=== PATIENT | female | born 1990 | race African-American/Black ===

== ENCOUNTER 2016-11-01 18:42 | Emergency (ER) | payer SELFPAY ==
[~2016-11-01] VITALS: Ht 154.9 cm; Wt 59.0 kg
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
[2016-11-01] MEDS ORDERED: ONDANSETRON PF 4 MG/2 ML VIAL. IV ONE (19:30)
[2016-11-01] MEDS ORDERED: fentaNYL PF VIAL 100 MCG/2 ML VIAL IV ONE ×3 (19:30→21:45)
[2016-11-01 19:37] LABS: BASO # 0.1 x10^3/uL (0.0-0.2); BASO % 1 % (0-3); EOS % 4 % (0-3); HEMOGLOBIN 10.9 g/dL (12.0-15.5); LYMPH # 2.7 x10^3/uL (1.0-4.8); LYMPH % 30 % (24-48); MEAN CORPUSCULAR HEMOGLOBIN 22 pg (25-35); MEAN CORPUSCULAR HGB CONC 31 g/dL (31-37); MEAN CORPUSCULAR VOLUME 71 fL (79-100); MONO % 7 % (0-9); NEUT % 59 % (31-73); PLATELET COUNT 194 x10^3/uL (140-400); RED BLOOD COUNT 4.92 x10^6/uL (3.50-5.40); RED CELL DISTRIBUTION WIDTH 19.7 % (11.5-14.5); WHITE BLOOD COUNT 9.1 x10^3/uL (4.0-11.0)
[2016-11-01 19:48] LABS: CALCIUM 9.1 mg/dL (8.5-10.1); CREATININE 1.1 mg/dL (0.6-1.0); GFR 72.6; POTASSIUM 3.6 mmol/L (3.5-5.1)
[2016-11-01 20:01] LABS: NEG OBC SER NEG; POS OBC SER POS
[2016-11-01 20:01] LABS: BARBITURATES NEG (NEG); BENZODIAZEPINES NEG (NEG); CANNABINOIDS POS (NEG); COCAINE NEG (NEG); METHADONE NEG (NEG); OPIATES NEG (NEG); PHENCYCLIDINE POS (NEG)
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
[2016-11-01 20:20] LABS: HYPOCHROMIA MOD; MICROCYTOSIS MOD; PLT ESTIMATE ADEQUATE (ADEQUATE)
[2016-11-01 22:45] VITALS: BP 118/76
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
== END 2016-11-01 22:50 | disposition short-term general hospital (02) ==
LOC: ER 18:42
DX: S02.40DA Maxillary fracture, left side, initial encounter for closed fracture (principal); S02.5XXA Fracture of tooth (traumatic), initial encounter for closed fracture; F16.10 Hallucinogen abuse, uncomplicated; F12.10 Cannabis abuse, uncomplicated; V13.4XXA Pedal cycle driver injured in collision with car, pick-up truck or van in traffic accident, initial encounter; Y93.55 Activity, bike riding; Y92.410 Unspecified street and highway as the place of occurrence of the external cause; Y99.8 Other external cause status
CPT/HCPCS: 36415; 70450; 70486; 71010; 72125; 72170; 80048; 80307; 81025; 84703; 85007; 85027; 96365; 96366; 96374; 96375; 96376; 99285; G0480; J0690; J2405; J3010; G0479

== ENCOUNTER 2017-09-28 15:45 | Inpatient (IN) | payer OTHER ==
[~2017-09-28 15:45] MED LIST: ceFAZolin 2GM PREMIX 2 GM/50 ML BAG IV
[2017-09-28] MEDS ORDERED: BUTORPHANOL 2 MG/ML VIAL. IV ×2 (16:00)
[2017-09-28] MEDS ORDERED: CITRIC ACID/SODIUM CITRATE 30 ML SOLUTION. PO (16:00)
[2017-09-28] MEDS ORDERED: 0.9 % SODIUM CHLORIDE 10 ML DISP.SYRIN. IV ×2 (16:00→17:15)
[2017-09-28] MEDS ORDERED: MAG HYDROX/ALUMINUM HYD/SIMETH 30 ML ORAL.SUSP PO ×2 (16:00→17:15)
[2017-09-28] MEDS: DINOPROSTONE 10 MG SUPP.VAG VG (16:00)
[2017-09-28] MEDS ORDERED: LIDOCAINE 1% PF 30 ML VIAL. INJ (16:00)
[2017-09-28] MEDS ORDERED: OXYTOCIN 30 UNIT/500 ML PREMIX 500 ML IV ×3 (16:00→17:15)
[2017-09-28 16:15] LABS: ADD MAN DIFF? NO
[2017-09-28 16:23] LABS: BASO % 0 % (0-3); EOS # 0.3 x10^3/uL (0.0-0.7); EOS % 3 % (0-3); HEMATOCRIT 36.9 % (36.0-47.0); HEMOGLOBIN 12.3 g/dL (12.0-15.5); LYMPH % 19 % (24-48); MEAN CORPUSCULAR HEMOGLOBIN 28 pg (25-35); MEAN CORPUSCULAR HGB CONC 33 g/dL (31-37); MEAN CORPUSCULAR VOLUME 84 fL (79-100); MONO # 0.9 x10^3/uL (0.0-1.1); MONO % 8 % (0-9); NEUT # 7.6 x10^3uL (1.8-7.7); NEUT % 70 % (31-73); PLATELET COUNT 118 x10^3/uL (140-400); RED BLOOD COUNT 4.41 x10^6/uL (3.50-5.40); RED CELL DISTRIBUTION WIDTH 17.6 % (11.5-14.5); WHITE BLOOD COUNT 10.8 x10^3/uL (4.0-11.0)
[2017-09-28] MEDS ORDERED: SUCCINYLCHOLINE 200 MG/10 ML VIAL. (16:28)
[2017-09-28 16:33] LABS: ANION GAP 11 (6-14); BLOOD UREA NITROGEN 7 mg/dL (7-20); BUN/CREATININE RATIO 12 (6-20); CALCIUM 9.2 mg/dL (8.5-10.1); CARBON DIOXIDE 22 mmol/L (21-32); CHLORIDE 104 mmol/L (98-107); CREATININE 0.6 mg/dL (0.6-1.0); GFR 145.1; GLUCOSE 123 mg/dL (70-99); POTASSIUM 3.1 mmol/L (3.5-5.1); SODIUM 137 mmol/L (136-145)
[2017-09-28 16:38] LABS: ALBUMIN 2.2 g/dL (3.4-5.0); ALBUMIN/GLOBULIN RATIO 0.6 (1.0-1.7); ALK PHOS 198 U/L (46-116); ALT (SGPT) 14 U/L (14-59); AST (SGOT) 13 U/L (15-37); TOTAL BILIRUBIN 0.1 mg/dL (0.2-1.0); TOTAL PROTEIN 6.1 g/dL (6.4-8.2)
[2017-09-28] MEDS ORDERED: miSOPROStol 200MCG TAB 200 MCG TABLET (16:38)
[2017-09-28] MEDS ORDERED: fentaNYL PF VIAL 100 MCG/2 ML VIAL ×2 (16:41→17:12)
[2017-09-28] MEDS ORDERED: DEXAMETHASONE SOD PHOS 20 MG/5 ML VIAL. (16:42)
[2017-09-28] MEDS ORDERED: OXYTOCIN 10 UNIT/ML VIAL. (16:42)
[2017-09-28] MEDS ORDERED: ONDANSETRON PF 4 MG/2 ML VIAL. (16:42)
[2017-09-28] MEDS ORDERED: PROPOFOL 20 ML IV (16:42)
[2017-09-28] MEDS ORDERED: ONDANSETRON PF 4 MG/2 ML VIAL. IV (17:15)
[2017-09-28] MEDS ORDERED: SIMETHICONE 80 MG TAB.CHEW PO (17:15)
[2017-09-28] MEDS ORDERED: oxyCODONE/APAP 5/325 1 TAB TABLET PO (17:15)
[2017-09-28] MEDS ORDERED: diphenhydrAMINE ORAL ELIXIR 12.5 MG/5 ML ML PO (17:15)
[2017-09-28] MEDS ORDERED: ZOLPIDEM 5 MG TABLET. PO (17:15)
[2017-09-28] MEDS ORDERED: MMR per PROTOCOL. MC (17:15)
[2017-09-28] MEDS: IV RINGERS,LACTATED 1000ML 1,000 ML IV ×2 (17:54→17:55)
[2017-09-28] MEDS: MORPHINE SULFATE/PF 30 ML IV ×2 (18:08→18:18)
[2017-09-28 18:45] LABS: BARBITURATES NEG (NEG); BENZODIAZEPINES NEG (NEG); CANNABINOIDS NEG (NEG); COCAINE NEG (NEG); METHADONE NEG (NEG); OPIATES NEG (NEG); PHENCYCLIDINE POS (NEG)
[2017-09-28 18:46] LABS: AMPHETAMINE/METHAMPHETAMINE NEG (NEG); ETHANOL, URINE NEG (NEG)
[2017-09-28] MEDS: KETOROLAC 30 MG/ML INJ. IV (19:30)
[2017-09-28] MEDS: TERBUTALINE 1 MG/ML VIAL. SQ (20:02)
[2017-09-28] MEDS: IBUPROFEN 800 MG TABLET. PO (22:00)
[2017-09-29] MEDS ORDERED: ceFAZolin SODIUM 1 GM in IV DEXTROSE 5% 50 ML IV
[2017-09-29] MEDS: ceFAZolin SODIUM IV Push 1 GM VIAL. IVP ×3 (00:10→16:00)
[2017-09-29] MEDS: IV RINGERS,LACTATED 1000ML 1,000 ML IV (01:29)
[2017-09-29] MEDS: MORPHINE SULFATE/PF 30 ML IV (03:27)
[2017-09-29 05:12] LABS: BASO % 0 % (0-3); EOS % 0 % (0-3); HEMATOCRIT 26.5 % (36.0-47.0); HEMOGLOBIN 8.6 g/dL (12.0-15.5); LYMPH # 1.8 x10^3/uL (1.0-4.8); LYMPH % 8 % (24-48); MEAN CORPUSCULAR HEMOGLOBIN 27 pg (25-35); MEAN CORPUSCULAR HGB CONC 32 g/dL (31-37); MEAN CORPUSCULAR VOLUME 84 fL (79-100); MONO # 1.5 x10^3/uL (0.0-1.1); MONO % 7 % (0-9); NEUT # 19.3 x10^3uL (1.8-7.7); NEUT % 85 % (31-73); PLATELET COUNT 115 x10^3/uL (140-400); RED BLOOD COUNT 3.17 x10^6/uL (3.50-5.40); RED CELL DISTRIBUTION WIDTH 17.7 % (11.5-14.5); WHITE BLOOD COUNT 22.6 x10^3/uL (4.0-11.0)
[2017-09-29 05:31] LABS: ADD MAN DIFF? YES
[2017-09-29] MEDS: IBUPROFEN 800 MG TABLET. PO ×3 (06:00→22:00)
[2017-09-29 08:07] LABS: % BANDS 8 % (0-9); % LYMPHS 5 % (24-48); % MONOS 4 % (0-10); % SEGS 83 % (35-66); PLT ESTIMATE DECREASED (ADEQUATE)
[2017-09-29 08:08] LABS: ANISOCYTOSIS SLIGHT
[2017-09-29] MEDS: DOCUSATE SODIUM 100 MG CAPSULE. PO ×2 (08:14→19:34)
[2017-09-29] MEDS: FERROUS SULFATE 325 MG TABLET. PO ×2 (08:14→16:58)
[2017-09-29] MEDS: KETOROLAC 30 MG/ML INJ. IV (08:14)
[2017-09-29] MEDS: oxyCODONE/APAP 5/325 1 TAB TABLET PO ×3 (09:06→17:53)
[2017-09-29] MEDS: diphenhydrAMINE HCL 25 MG CAPSULE PO ×2 (12:11→19:34)
[2017-09-29] MEDS: NICOTINE 14MG PATCH. TD (18:30)
[2017-09-30] MEDS: oxyCODONE/APAP 5/325 1 TAB TABLET PO ×4 (01:55→20:08)
[2017-09-30] MEDS: IBUPROFEN 800 MG TABLET. PO ×2 (06:15→14:09)
[2017-09-30] MEDS: DOCUSATE SODIUM 100 MG CAPSULE. PO ×2 (07:41→20:07)
[2017-09-30] MEDS: MAGNESIUM HYDROXIDE 2,400 MG/30 ML ORAL.SUSP. PO (07:41)
[2017-09-30] MEDS: FERROUS SULFATE 325 MG TABLET. PO ×2 (07:41→17:55)
[2017-09-30] MEDS: diphenhydrAMINE HCL 25 MG CAPSULE PO ×2 (12:11→20:11)
[2017-10-01] MEDS: oxyCODONE/APAP 5/325 1 TAB TABLET PO ×2 (00:45→07:50)
[2017-10-01] MEDS: IBUPROFEN 800 MG TABLET. PO ×2 (00:45→07:49)
[2017-10-01] MEDS: DOCUSATE SODIUM 100 MG CAPSULE. PO (07:48)
[2017-10-01] MEDS: FERROUS SULFATE 325 MG TABLET. PO (07:48)
== END 2017-10-01 10:31 | disposition home or self-care (01) | DRG 765 ==
LOC: 3 SO LND 15:45 → 3 NORTH 20:30
PROC: 10D00Z1 Extraction of Products of Conception, Low, Open Approach (ICD-10-PCS; principal; 2017-09-28)
DX: O44.13 Complete placenta previa with hemorrhage, third trimester (principal); D62 Acute posthemorrhagic anemia; Z37.0 Single live birth; Z3A.33 33 weeks gestation of pregnancy
CPT/HCPCS: 36415; 74018; 80053; 80307; 85007; 85025; 86592; 86850; 86900; 86901; 86922; G0379; J0330; J0690; J1100; J1885; J2270; J2405; J2590; J2704; J3010; J7120; Q0163

== ENCOUNTER 2018-11-22 23:06 | Emergency (ER) | payer SELFPAY ==
[~2018-11-22] VITALS: Ht 154.9 cm; Wt 59.0 kg
[~2018-11-22 23:06] MED LIST changes: +DOCU-109 PO; +FERR325T72 PO; +IBUP800T19 PO; +OXYC1TAB7 PO; -ceFAZolin 2GM PREMIX 2 GM/50 ML BAG IV
[2018-11-22 23:38] LABS: BILIRUBIN,URINE NEGATIVE (NEG); CLARITY,URINE CLOUDY; COLOR,URINE YELLOW; NITRITE,URINE NEGATIVE (NEG); PROTEIN,URINE 100 mg/dL (NEG-TRACE); UROBILINOGEN,URINE 0.2 mg/dL (0.2 mg/dL)
[2018-11-22 23:43] LABS: RBC,URINE TNTC /HPF (0-2); WBC,URINE TNTC /HPF (0-4)
[2018-11-22 23:44] LABS: BACTERIA,URINE FEW /HPF (0-FEW); SQUAMOUS EPITHELIAL CELL,UR OCC /LPF
[2018-11-22] MEDS: IV NORMAL SALINE 1000ML BAG 1,000 ML IV ONE (23:46)
[2018-11-22 23:47] LABS: BASO # 0.1 x10^3/uL (0.0-0.2); BASO % 1 % (0-3); EOS # 0.5 x10^3/uL (0.0-0.7); EOS % 4 % (0-3); HEMATOCRIT 34.5 % (36.0-47.0); HEMOGLOBIN 10.7 g/dL (12.0-15.5); LYMPH # 2.2 x10^3/uL (1.0-4.8); LYMPH % 17 % (24-48); MEAN CORPUSCULAR HEMOGLOBIN 21 pg (25-35); MEAN CORPUSCULAR HGB CONC 31 g/dL (31-37); MEAN CORPUSCULAR VOLUME 68 fL (79-100); MONO # 1.1 x10^3/uL (0.0-1.1); MONO % 9 % (0-9); NEUT # 8.8 x10^3/uL (1.8-7.7); NEUT % 69 % (31-73); PLATELET COUNT 223 x10^3/uL (140-400); RED BLOOD COUNT 5.04 x10^6/uL (3.50-5.40); WHITE BLOOD COUNT 12.7 x10^3/uL (4.0-11.0)
[2018-11-22 23:56] LABS: CALCIUM 9.3 mg/dL (8.5-10.1); CREATININE 0.8 mg/dL (0.6-1.0); GFR 103.3; POTASSIUM 3.8 mmol/L (3.5-5.1)
[2018-11-23 00:05] LABS: ALBUMIN 3.8 g/dL (3.4-5.0); ALBUMIN/GLOBULIN RATIO 0.9 (1.0-1.7); MAGNESIUM 1.6 mg/dL (1.8-2.4); TOTAL BILIRUBIN 0.2 mg/dL (0.2-1.0)
[2018-11-23] MEDS: cefTRIAXone IV Push 1 GM VIAL. IVP ONE (00:23)
[2018-11-23] MEDS: fentaNYL PF VIAL 100 MCG/2 ML VIAL IV ONE (00:35)
[2018-11-23] MEDS: KETOROLAC 15 MG/ML VIAL. IV ONE (00:35)
--- NOTE | 2018-11-23 00:40 | RAD ---
CT abdomen and pelvis without contrast: Reason for examination: Abdominal pain and hematuria. Helical images were obtained through the abdomen and pelvis with no intravenous or oral contrast administered. Reconstruction was performed in sagittal and coronal planes. Lack of oral and intravenous contrast and lack of intra-abdominal fat limit evaluation. Exposure: One or more of the following individualized dose reduction techniques were utilized for this examination: 1. Automated exposure control 2. Adjustment of the mA and/or kV according to patient size 3. Use of iterative reconstruction technique. The lung bases are clear. The heart size is normal with no pericardial effusion evident. No focal abnormality seen at the liver, spleen or adrenal glands. Gallbladder is contracted. The abdominal aorta and inferior vena cava show no gross abnormalities. The kidneys show no renal masses, renal calculi, hydronephrosis or evidence of obstructive uropathy. There is very little intra-abdominal fat present with crowding of the intestinal structures and the appendix is not identified. There is no evidence of abnormal intestinal wall thickening or bowel obstruction. No abnormality seen in the colon. The bladder is not distended. No gross abnormality seen at the uterus. No gross adnexal masses are evident. There is suggestion of a small amount of free fluid in pelvic cul-de-sac which may be physiologic. No free air seen in the abdomen. No acute bony abnormalities are seen. IMPRESSION: Limited examination due to lack of intra-abdominal fat and without oral or intravenous contrast. No evidence of renal calculus, hydronephrosis or obstructive uropathy. Contracted gallbladder however the patient does not appear to have been nothing by mouth. Small amount of fluid in pelvic cul-de-sac which may be physiologic. No other focal abnormality seen in the abdomen or pelvis. Electronically signed by: Analilia Prince MD (11/23/2018 12:37 AM) [facility]
[2018-11-23] MEDS ORDERED: PHEN-318 PO (00:45)
[2018-11-23] MEDS ORDERED: CEPH-264 PO (00:45)
--- NOTE | 2018-11-23 00:46 | PHYS DOC ---
Past Medical History Past Medical History: No Pertinent History Past Surgical History: No Surgical History Alcohol Use: None Drug Use: None Adult General Chief Complaint Chief Complaint: BLOOD IN URINE HPI HPI Patient is a 27 year old [f__sex] who presents with [] Review of Systems Review of Systems Constitutional: Denies fever or chills [] Eyes: Denies change in visual acuity, redness, or eye pain [] HENT: Denies nasal congestion or sore throat [] Respiratory: Denies cough or shortness of breath [] Cardiovascular: No additional information not addressed in HPI [] GI: Denies abdominal pain, nausea, vomiting, bloody stools or diarrhea [] : Denies dysuria or hematuria [] Musculoskeletal: Denies back pain or joint pain [] Integument: Denies rash or skin lesions [] Neurologic: Denies headache, focal weakness or sensory changes [] Endocrine: Denies polyuria or polydipsia [] All other systems were reviewed and found to be within normal limits, except as documented in this note. Current Medications Current Medications Current Medications Medications (Trade) Dose Ordered Sig/Yuniel Start Time Stop Time Status Last Admin Dose Admin Ceftriaxone Sodium (Rocephin) 1 gm 1X ONCE 11/23/18 00:30 11/23/18 00:31 DC 11/23/18 00:23 1 GM Fentanyl Citrate (Fentanyl 2ml Vial) 50 mcg 1X ONCE 11/23/18 00:30 11/23/18 00:31 DC 11/23/18 00:38 50 MCG Ketorolac Tromethamine (Toradol 15mg Vial) 15 mg 1X ONCE 11/23/18 00:30 11/23/18 00:31 DC 11/23/18 00:38 15 MG Magnesium Chloride (Mag Delay) 64 mg 1X ONCE 11/23/18 01:00 11/23/18 01:01 Phenazopyridine HCl (Pyridium) 200 mg 1X ONCE 11/23/18 01:00 11/23/18 01:01 Sodium Chloride 1,000 ml @ 1,000 mls/hr 1X ONCE 11/22/18 23:30 11/23/18 00:29 DC 11/22/18 23:46 1,000 MLS/HR Allergies Allergies Allergies Coded Allergies Type Severity Reaction Last Updated Verified No Known Drug Allergies 08/22/13 No Physical Exam Physical Exam Constitutional: Well developed, well nourished, no acute distress, non-toxic appearance. [] HENT: Normocephalic, atraumatic, bilateral external ears normal, oropharynx moist, no oral exudates, nose normal. [] Eyes: PERRLA, EOMI, conjunctiva normal, no discharge. [] Neck: Normal range of motion, no tenderness, supple, no stridor. [] Cardiovascular:Heart rate regular rhythm, no murmur [] Lungs & Thorax: Bilateral breath sounds clear to auscultation [] Abdomen: Bowel sounds normal, soft, no tenderness, no masses, no pulsatile masses. [] Skin: Warm, dry, no erythema, no rash. [] Back: No tenderness, no CVA tenderness. [] Extremities: No tenderness, no cyanosis, no clubbing, ROM intact, no edema. [] Neurologic: Alert and oriented X 3, normal motor function, normal sensory function, no focal deficits noted. [] Psychologic: Affect normal, judgement normal, mood normal. [] Current Patient Data Vital Signs Vital Signs Date Time Temp Pulse Resp B/P (MAP) Pulse Ox O2 Delivery O2 Flow Rate FiO2 11/23/18 00:38 18 100 11/22/18 23:21 98.1 79 125/77 (93) Room Air 98.1 Lab Values Laboratory Tests Test 11/22/18 23:10 11/22/18 23:19 11/22/18 23:40 Urine Collection Type Unknown Urine Color Yellow Urine Clarity Cloudy Urine pH 6.0 Urine Specific [place] 1.010 Urine Protein 100 mg/dL (NEG-TRACE) Urine Glucose (UA) Negative mg/dL (NEG) Urine Ketones (Stick) Negative mg/dL (NEG) Urine Blood Large (NEG) Urine Nitrite Negative (NEG) Urine Bilirubin Negative (NEG) Urine Urobilinogen Dipstick 0.2 mg/dL (0.2 mg/dL) Urine Leukocyte Esterase Large (NEG) Urine RBC Tntc /HPF (0-2) Urine WBC Tntc /HPF (0-4) Urine Squamous Epithelial Cells Occ /LPF Urine Transitional Epithelial Cells Occ /LPF Urine Renal Epithelial Cells Occ /LPF Urine Bacteria Few /HPF (0-FEW) POC Urine HCG, Qualitative Hcg negative (Negative) White Blood Count 12.7 x10^3/uL (4.0-11.0) H Red Blood Count 5.04 x10^6/uL (3.50-5.40) Hemoglobin 10.7 g/dL (12.0-15.5) L Hematocrit 34.5 % (36.0-47.0) L Mean Corpuscular Volume 68 fL (79-100) L Mean Corpuscular Hemoglobin 21 pg (25-35) L Mean Corpuscular Hemoglobin Concent 31 g/dL (31-37) Red Cell Distribution Width 21.0 % (11.5-14.5) H Platelet Count 223 x10^3/uL (140-400) Neutrophils (%) (Auto) 69 % (31-73) Lymphocytes (%) (Auto) 17 % (24-48) L Monocytes (%) (Auto) 9 % (0-9) Eosinophils (%) (Auto) 4 % (0-3) H Basophils (%) (Auto) 1 % (0-3) Neutrophils # (Auto) 8.8 x10^3/uL (1.8-7.7) H Lymphocytes # (Auto) 2.2 x10^3/uL (1.0-4.8) Monocytes # (Auto) 1.1 x10^3/uL (0.0-1.1) Eosinophils # (Auto) 0.5 x10^3/uL (0.0-0.7) Basophils # (Auto) 0.1 x10^3/uL (0.0-0.2) Platelet Estimate Pending Sodium Level 139 mmol/L (136-145) Potassium Level 3.8 mmol/L (3.5-5.1) Chloride Level 101 mmol/L (98-107) Carbon Dioxide Level 26 mmol/L (21-32) Anion Gap 12 (6-14) Blood Urea Nitrogen 6 mg/dL (7-20) L Creatinine 0.8 mg/dL (0.6-1.0) Estimated GFR (Cockcroft-Gault) 103.3 BUN/Creatinine Ratio 8 (6-20) Glucose Level 99 mg/dL (70-99) Calcium Level 9.3 mg/dL (8.5-10.1) Magnesium Level 1.6 mg/dL (1.8-2.4) L Total Bilirubin 0.2 mg/dL (0.2-1.0) Aspartate Amino Transferase (AST) 19 U/L (15-37) Alanine Aminotransferase (ALT) 12 U/L (14-59) L Alkaline Phosphatase 94 U/L (46-116) Total Protein 8.0 g/dL (6.4-8.2) Albumin 3.8 g/dL (3.4-5.0) Albumin/Globulin Ratio 0.9 (1.0-1.7) L Lipase 62 U/L (73-393) L Laboratory Tests 11/22/18 23:40 Laboratory Tests 11/22/18 23:40 EKG EKG [] Radiology/Procedures Radiology/Procedures PROCEDURE: CT ABDOMEN PELVIS WO CONTRAST CT abdomen and pelvis without contrast: Reason for examination: Abdominal pain and hematuria. Helical images were obtained through the abdomen and pelvis with no intravenous or oral contrast administered. Reconstruction was performed in sagittal and coronal planes. Lack of oral and intravenous contrast and lack of intra-abdominal fat limit evaluation. Exposure: One or more of the following individualized dose reduction techniques were utilized for this examination: 1. Automated exposure control 2. Adjustment of the mA and/or kV according to patient size 3. Use of iterative reconstruction technique. The lung bases are clear. The heart size is normal with no pericardial effusion evident. No focal abnormality seen at the liver, spleen or adrenal glands. Gallbladder is contracted. The abdominal aorta and inferior vena cava show no gross abnormalities. The kidneys show no renal masses, renal calculi, hydronephrosis or evidence of obstructive uropathy. There is very little intra-abdominal fat present with crowding of the intestinal structures and the appendix is not identified. There is no evidence of abnormal intestinal wall thickening or bowel obstruction. No abnormality seen in the colon. The bladder is not distended. No gross abnormality seen at the uterus. No gross adnexal masses are evident. There is suggestion of a small amount of free fluid in pelvic cul-de-sac which may be physiologic. No free air seen in the abdomen. No acute bony abnormalities are seen. IMPRESSION: Limited examination due to lack of intra-abdominal fat and without oral or intravenous contrast. No evidence of renal calculus, hydronephrosis or obstructive uropathy. Contracted gallbladder however the patient does not appear to have been nothing by mouth. Small amount of fluid in pelvic cul-de-sac which may be physiologic. No other focal abnormality seen in the abdomen or pelvis. Electronically signed by: Analilia Prince MD (11/23/2018 12:37 AM) [facility] Course & Med Decision Making Course & Med Decision Making Pertinent Labs and Imaging studies reviewed. (See chart for details) [] Dragon Disclaimer Dragon Disclaimer This electronic medical record was generated, in whole or in part, using a voice recognition dictation system. Departure Departure Impression: Primary Impression: Pyelonephritis Additional Impressions: Hematuria Hypomagnesemia Disposition: HOME, SELF-CARE Condition: STABLE Referrals: NO PCP (PCP) Patient Instructions: Hematuria, Adult, Hypomagnesemia, Pyelonephritis, Adult, [id number] Scripts Hydrocodone/Apap 5-325 (NORCO 5-325 TABLET) 1 Each Tablet 0.5-1 TAB PO PRN Q6HRS PRN for PAIN, #8 TAB 0 Refills Prov: MARIALUISA DIEZ DO 11/23/18 Phenazopyridine Hcl (PYRIDIUM) 200 Mg Tablet 200 MG PO Q8HRS PRN for DYSURIA for 2 Days, #6 TAB Prov: MARIALUISA DIEZ DO 11/23/18 Cephalexin (KEFLEX) 500 Mg Capsule 1 CAP PO TID for 7 Days, #21 CAP Prov: MARIALUISA DIEZ DO 11/23/18 Problem Qualifiers Additional Impressions: Hematuria Hematuria type: unspecified type Qualified Codes: R31.9 - Hematuria, unspecified MARIALUISA DIEZ DO Nov 23, 2018 00:45
[2018-11-23] MEDS ORDERED: HYDR-3164 PO (00:51)
[2018-11-23] MEDS: MAGNESIUM CHLORIDE ER 64 MG TABLET.ER PO ONE (01:03)
[2018-11-23] MEDS: PHENAZOPYRIDINE 200 MG TABLET. PO ONE (01:03)
[2018-11-23 01:05] VITALS: BP 142/67
[2018-11-23 04:11] LABS: ANISOCYTOSIS MOD; HYPOCHROMIA MOD; MICROCYTOSIS MARKED; PLT ESTIMATE ADEQUATE (ADEQUATE)
[2018-11-23 04:12] LABS: OVALOCYTES OCC; SCHISTOCYTES OCC
== END 2018-11-23 02:15 | disposition home or self-care (01) ==
LOC: ER 23:06
DX: N12 Tubulo-interstitial nephritis, not specified as acute or chronic (principal); R31.9 Hematuria, unspecified; E83.42 Hypomagnesemia
CPT/HCPCS: 36415; 74176; 80053; 81001; 81025; 83690; 83735; 85025; 87086; 87186; 96374; 96375; 99285; J0696; J1885; J3010; J7030

== ENCOUNTER 2018-12-04 00:57 | Emergency (ER) | payer SELFPAY ==
[~2018-12-04 00:57] MED LIST changes: +CEPH-264 PO; +HYDR-3164 PO; +PHEN-318 PO
== END 2018-12-04 01:25 | disposition left against medical advice (07) ==
LOC: ER 00:57
DX: R41.82 Altered mental status, unspecified (principal); Z53.21 Procedure and treatment not carried out due to patient leaving prior to being seen by health care provider
CPT/HCPCS: 82962

== ENCOUNTER 2018-12-08 20:41 | Emergency (ER) | payer SELFPAY ==
[~2018-12-08] VITALS: Ht 154.9 cm; Wt 62.1 kg
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
--- NOTE | 2018-12-08 22:43 | RAD ---
Exam: CT head and cervical spine without contrast INDICATION: Fall, neck pain TECHNIQUE: Sequential axial images through the head and cervical spine were obtained without the administration of IV contrast. Comparisons: None FINDINGS: Head: No focal parenchymal lesion or hemorrhage is identified. There is no midline shift or sulcal effacement. No acute vascular territory infarction is identified. Shah-white distinction is preserved. The ventricular system is within normal limits without compression hydrocephalus. The basal cisterns are well maintained. The visualized portions of the paranasal sinuses and mastoid air cells are well-pneumatized. No acute fractures. Cervical spine: Vertebral body heights and alignment are well-maintained. Fracture to the cervical spine is not identified. No significant spondylotic changes noted in the cervical spine. Visualized paraspinal soft tissues are unremarkable. IMPRESSION: 1. No acute intracranial abnormality. 2. Evaluation is mildly limited secondary to patient positioning. Negative CT C-spine for acute traumatic injury. Exposure: One or more of the following in the visualized dose reduction techniques were utilized for this examination: 1. Automated exposure control 2. Adjustment of the MA and/or KV according to patient size Use of iterative of reconstructive technique Electronically signed by: Liban Luo MD (12/08/2018 10:40 PM) [facility]
[2018-12-08 23:40] VITALS: BP 124/73
[2018-12-08] MEDS ORDERED: CEPH-264 PO (23:49)
--- NOTE | 2018-12-09 00:38 | RAD ---
Three-view right elbow radiographs 12/08/2018 CLINICAL HISTORY: Fall with right elbow pain. AP, lateral and oblique digital radiographs of the right elbow were obtained. No fracture or dislocation of the right elbow is seen. There is no radiographic evidence of a joint effusion. IMPRESSION: No fracture or dislocation of the right elbow is seen. Electronically signed by: Caleb Goyal MD (12/09/2018 12:35 AM) [facility]
== END 2018-12-09 00:10 | disposition home or self-care (01) ==
LOC: ER 20:41
DX: S50.01XA Contusion of right elbow, initial encounter (principal); R51 Headache; W01.198A Fall on same level from slipping, tripping and stumbling with subsequent striking against other object, initial encounter; Y93.01 Activity, walking, marching and hiking; Y92.89 Other specified places as the place of occurrence of the external cause; Y99.8 Other external cause status
CPT/HCPCS: 70450; 72125; 73080; 81025; 99284

== ENCOUNTER 2019-02-10 16:19 | Emergency (ER) | payer MEDICAID ==
[~2019-02-10] VITALS: Ht 154.9 cm; Wt 62.1 kg
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
[2019-02-10] MEDS ORDERED: IV NORMAL SALINE 1000ML BAG 1,000 ML IV SCH (18:00)
[2019-02-10 18:18] LABS: BILIRUBIN,URINE NEGATIVE (NEG); CLARITY,URINE CLEAR; COLOR,URINE YELLOW; NITRITE,URINE NEGATIVE (NEG); PROTEIN,URINE NEGATIVE (NEG-TRACE); UROBILINOGEN,URINE 0.2 mg/dL (0.2 mg/dL)
--- NOTE | 2019-02-10 18:27 | RAD ---
Exam: CT head INDICATION: Headache and numbness TECHNIQUE: Sequential axial images through the head were obtained without the administration of IV contrast. Comparisons: None FINDINGS: No focal parenchymal lesion or hemorrhage is identified. There is no midline shift or sulcal effacement. No acute vascular territory infarction is identified. Shah-white distinction is preserved. The ventricular system is within normal limits without compression hydrocephalus. The basal cisterns are well maintained. The visualized portions of the paranasal sinuses and mastoid air cells are well-pneumatized. No acute fractures. IMPRESSION: No acute intracranial abnormality. Exposure: One or more of the following in the visualized dose reduction techniques were utilized for this examination: 1. Automated exposure control 2. Adjustment of the MA and/or KV according to patient size Use of iterative of reconstructive technique Electronically signed by: Liban Luo MD (02/10/2019 6:24 PM) [facility]
[2019-02-10 18:32] LABS: BACTERIA,URINE FEW /HPF (0-FEW); RBC,URINE 0 /HPF (0-2)
[2019-02-10 18:33] LABS: SQUAMOUS EPITHELIAL CELL,UR MANY /LPF
[2019-02-10 18:37] LABS: BASO # 0.1 x10^3/uL (0.0-0.2); BASO % 2 % (0-3); EOS # 0.4 x10^3/uL (0.0-0.7); EOS % 4 % (0-3); HEMATOCRIT 36.2 % (36.0-47.0); HEMOGLOBIN 11.3 g/dL (12.0-15.5); LYMPH # 3.9 x10^3/uL (1.0-4.8); LYMPH % 46 % (24-48); MEAN CORPUSCULAR HEMOGLOBIN 23 pg (25-35); MEAN CORPUSCULAR HGB CONC 31 g/dL (31-37); MEAN CORPUSCULAR VOLUME 72 fL (79-100); MONO # 0.7 x10^3/uL (0.0-1.1); MONO % 8 % (0-9); NEUT # 3.4 x10^3/uL (1.8-7.7); NEUT % 40 % (31-73); PLATELET COUNT 173 x10^3/uL (140-400); RED BLOOD COUNT 5.02 x10^6/uL (3.50-5.40); RED CELL DISTRIBUTION WIDTH 22.4 % (11.5-14.5); WHITE BLOOD COUNT 8.6 x10^3/uL (4.0-11.0)
--- NOTE | 2019-02-10 18:40 | RAD ---
Exam: Chest one view INDICATION: Chest pain TECHNIQUE: Frontal view of the chest Comparisons: 11/01/2016 FINDINGS: The cardiomediastinal silhouette and pulmonary vessels are within normal limits. The lung and pleural spaces are clear. IMPRESSION: No acute cardiopulmonary process. Electronically signed by: Liban Luo MD (02/10/2019 6:37 PM) [facility]
[2019-02-10 18:44] LABS: BARBITURATES NEG (NEG); BENZODIAZEPINES NEG (NEG); CANNABINOIDS POS (NEG); COCAINE NEG (NEG); METHADONE NEG (NEG); OPIATES NEG (NEG); PHENCYCLIDINE POS (NEG)
[2019-02-10 18:46] LABS: AMPHETAMINE/METHAMPHETAMINE NEG (NEG)
[2019-02-10 19:09] LABS: HYPOCHROMIA SLIGHT; PLT ESTIMATE ADEQUATE (ADEQUATE)
[2019-02-10 19:11] LABS: ANISOCYTOSIS SLIGHT; OVALOCYTES FEW; POIKILOCYTOSIS SLIGHT; SCHISTOCYTES OCC; TARGET CELLS OCC
[2019-02-10 19:12] LABS: BURR CELLS OCC
[2019-02-10 19:13] LABS: MICROCYTOSIS SLIGHT
[2019-02-10 19:15] LABS: CALCIUM 9.1 mg/dL (8.5-10.1); CREATININE 0.7 mg/dL (0.6-1.0); GFR 119.7; POTASSIUM 3.8 mmol/L (3.5-5.1)
[2019-02-10 19:22] LABS: ALBUMIN 3.7 g/dL (3.4-5.0); ALBUMIN/GLOBULIN RATIO 0.9 (1.0-1.7); MAGNESIUM 1.8 mg/dL (1.8-2.4); TOTAL BILIRUBIN 0.1 mg/dL (0.2-1.0); TOTAL PROTEIN 7.7 g/dL (6.4-8.2)
[2019-02-10 19:33] VITALS: BP 138/99
--- NOTE | 2019-02-11 07:03 | EKG ---
[facility] [address] [place] [address] Test Date: 2019-02-10 Test Time: 18:50:28 Pat Name: RJ THOMAS Department: Room: Gender: F Giver: : 1990 Requested By: NILTON SLATER Order Number: [id number] Reading MD: Measurements Intervals [place] Rate: 86 P: 57 VA: 138 QRS: 45 QRSD: 76 T: 30 QT: 362 QTc: 436 Interpretive Statements SINUS RHYTHM NON SPECIFIC T ABNORMALITY BORDERLINE ECG No previous ECG available for comparison
== END 2019-02-10 20:01 | disposition left against medical advice (07) ==
LOC: ER 16:19
DX: F16.10 Hallucinogen abuse, uncomplicated (principal); R53.83 Other fatigue
CPT/HCPCS: 36415; 70450; 71045; 80053; 80307; 81001; 81025; 82607; 83735; 84443; 84484; 85025; 87086; 93005; 99285; G0480; J7030

== ENCOUNTER 2019-02-14 01:19 | Emergency (ER) | payer MEDICAID ==
[~2019-02-14] VITALS: Ht 154.9 cm; Wt 61.2 kg
[2019-02-14 01:34] VITALS: BP 142/98
[2019-02-14] MEDS ORDERED: CEPHALEXIN 250 MG CAPSULE. PO ONE (01:45)
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
== END 2019-02-14 02:04 | disposition home or self-care (01) ==
LOC: ER 01:19
DX: F19.10 Other psychoactive substance abuse, uncomplicated (principal)
CPT/HCPCS: 99283

== ENCOUNTER 2019-02-15 17:18 | Emergency (ER) | payer MEDICAID ==
[~2019-02-15] VITALS: Ht 154.9 cm; Wt 59.0 kg
[2019-02-15 19:30] VITALS: BP 135/85
[2019-02-15 19:34] LABS: BILIRUBIN,URINE NEGATIVE (NEG); CLARITY,URINE CLEAR; COLOR,URINE YELLOW; NITRITE,URINE NEGATIVE (NEG); PROTEIN,URINE NEGATIVE (NEG-TRACE); UROBILINOGEN,URINE 0.2 mg/dL (0.2 mg/dL)
[2019-02-15 19:47] LABS: BACTERIA,URINE FEW /HPF (0-FEW); SQUAMOUS EPITHELIAL CELL,UR FEW /LPF
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
== END 2019-02-15 20:15 | disposition home or self-care (01) ==
LOC: ER 17:18
DX: N39.0 Urinary tract infection, site not specified (principal); F16.10 Hallucinogen abuse, uncomplicated; Z88.1 Allergy status to other antibiotic agents
CPT/HCPCS: 81001; 87086; 99284

== ENCOUNTER 2019-05-12 23:12 | Emergency (ER) | payer MEDICAID, OTHER ==
[~2019-05-12] VITALS: Ht 154.9 cm; Wt 68.2 kg
[~2019-05-12 23:12] MED LIST changes: +CITA10TA8 PO
--- NOTE | 2019-05-13 00:58 | RAD ---
CHEST AP ONLY Clinical Indication: Cough Comparison: AP chest 03/02/2019. Findings: The cardiomediastinal silhouette is normal. Lungs are clear. There is no pneumothorax. No pleural effusion is appreciated. No acute bone abnormality. IMPRESSION: No acute cardiopulmonary process. Electronically signed by: Ravin Ramsey MD (05/13/2019 12:55 AM) [id number]
[2019-05-13] MEDS ORDERED: NAPR-683 PO (01:18)
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
[2019-05-13 01:20] VITALS: BP 114/70
[2019-05-13] MEDS ORDERED: ONDA4TAB12 PO (23:17)
== END 2019-05-13 01:22 | disposition home or self-care (01) ==
LOC: ER 23:12
DX: F16.10 Hallucinogen abuse, uncomplicated (principal); M54.5 Low back pain; M54.2 Cervicalgia; R05 Cough; Z87.440 Personal history of urinary (tract) infections; F17.200 Nicotine dependence, unspecified, uncomplicated; Z88.1 Allergy status to other antibiotic agents
CPT/HCPCS: 71045; 81025; 99283

== ENCOUNTER 2019-05-13 20:23 | Emergency (ER) | payer OTHER ==
[~2019-05-13] VITALS: Ht 154.9 cm; Wt 66.0 kg
[~2019-05-13 20:23] MED LIST changes: +NAPR-683 PO
[2019-05-13 21:19] LABS: BASO % 0 % (0-3); EOS # 0.2 x10^3/uL (0.0-0.7); EOS % 4 % (0-3); HEMATOCRIT 32.8 % (36.0-47.0); HEMOGLOBIN 10.2 g/dL (12.0-15.5); LYMPH # 1.5 x10^3/uL (1.0-4.8); LYMPH % 28 % (24-48); MEAN CORPUSCULAR HEMOGLOBIN 22 pg (25-35); MEAN CORPUSCULAR HGB CONC 31 g/dL (31-37); MEAN CORPUSCULAR VOLUME 70 fL (79-100); MONO % 19 % (0-9); NEUT # 2.7 x10^3/uL (1.8-7.7); NEUT % 50 % (31-73); PLATELET COUNT 187 x10^3/uL (140-400); RED BLOOD COUNT 4.68 x10^6/uL (3.50-5.40); RED CELL DISTRIBUTION WIDTH 19.6 % (11.5-14.5); WHITE BLOOD COUNT 5.5 x10^3/uL (4.0-11.0)
[2019-05-13 21:29] LABS: CALCIUM 8.4 mg/dL (8.5-10.1); CREATININE 0.9 mg/dL (0.6-1.0); GFR 89.6; POTASSIUM 3.5 mmol/L (3.5-5.1)
[2019-05-13 21:39] LABS: ALBUMIN 3.3 g/dL (3.4-5.0); ALBUMIN/GLOBULIN RATIO 0.9 (1.0-1.7); TOTAL BILIRUBIN 0.1 mg/dL (0.2-1.0); TOTAL PROTEIN 7.1 g/dL (6.4-8.2)
[2019-05-13 21:44] LABS: % EOS 6 % (0-5); % LYMPHS 32 % (24-48); % MONOS 15 % (0-10); % SEGS 47 % (35-66)
[2019-05-13 21:50] LABS: BILIRUBIN,URINE NEGATIVE (NEG); CLARITY,URINE CLEAR; COLOR,URINE YELLOW; NITRITE,URINE NEGATIVE (NEG); PROTEIN,URINE NEGATIVE (NEG-TRACE); UROBILINOGEN,URINE 0.2 mg/dL (0.2 mg/dL)
[2019-05-13 21:50] LABS: ANISOCYTOSIS SLIGHT; HYPOCHROMIA MOD; MICROCYTOSIS MARKED; PLT ESTIMATE ADEQUATE (ADEQUATE); POLYCHROMASIA SLIGHT
[2019-05-13 21:56] LABS: BARBITURATES NEG (NEG); BENZODIAZEPINES NEG (NEG); CANNABINOIDS POS (NEG); COCAINE NEG (NEG); METHADONE NEG (NEG); OPIATES NEG (NEG); PHENCYCLIDINE POS (NEG)
[2019-05-13 21:57] LABS: AMPHETAMINE/METHAMPHETAMINE NEG (NEG)
[2019-05-13 22:01] LABS: BACTERIA,URINE MOD /HPF (0-FEW); RBC,URINE RARE /HPF (0-2); SQUAMOUS EPITHELIAL CELL,UR MANY /LPF; WBC,URINE OCC /HPF (0-4)
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
[2019-05-13] MEDS ORDERED: ACETAMINOPHEN 500 MG TABLET PO ONE (23:00)
[2019-05-13] MEDS ORDERED: ONDANSETRON PF 4 MG/2 ML VIAL. IVP ONE (23:00)
[2019-05-13] MEDS ORDERED: KETOROLAC 30 MG/ML VIAL. IVP ONE (23:00)
[2019-05-13] MEDS ORDERED: IV NORMAL SALINE 1000ML BAG 1,000 ML IV ONE (23:00)
--- NOTE | 2019-05-13 23:08 | RAD ---
Exam: Chest one view INDICATION: Cough TECHNIQUE: Frontal view of the chest Comparisons: Chest x-ray same day FINDINGS: The cardiomediastinal silhouette and pulmonary vessels are within normal limits. The lung and pleural spaces are clear. IMPRESSION: No acute cardiopulmonary process. Electronically signed by: Liban Luo MD (05/13/2019 11:05 PM) [id number]
[2019-05-13 23:10] VITALS: BP 119/79
[2019-05-13 23:11] LABS: INFLUENZA A PATIENT NEGATIVE (NEGATIVE); INFLUENZA B PATIENT NEGATIVE (NEGATIVE)
[2019-05-13] MEDS ORDERED: ONDA4TAB12 PO (23:17)
== END 2019-05-13 23:45 | disposition home or self-care (01) ==
LOC: ER 20:23
DX: F16.10 Hallucinogen abuse, uncomplicated (principal); F12.10 Cannabis abuse, uncomplicated; R11.2 Nausea with vomiting, unspecified; R05 Cough; R50.9 Fever, unspecified; M54.89 Other dorsalgia; F17.200 Nicotine dependence, unspecified, uncomplicated; Z87.440 Personal history of urinary (tract) infections; Z88.1 Allergy status to other antibiotic agents
CPT/HCPCS: 36415; 71045; 80053; 80307; 81001; 81025; 83690; 85007; 85025; 87804; 96361; 96374; 96375; 99284; G0480; J1885; J2405; J7030

== ENCOUNTER 2019-06-20 22:09 | Emergency (ER) | payer SELFPAY ==
[~2019-06-20] VITALS: Ht 172.7 cm; Wt 63.6 kg
[~2019-06-20 22:09] MED LIST changes: +ONDA4TAB12 PO
[2019-06-20] MEDS ORDERED: ACETAMINOPHEN 500 MG TABLET PO ONE (22:45)
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
[2019-06-20 23:08] VITALS: BP 131/88
== END 2019-06-20 23:22 | disposition left against medical advice (07) ==
LOC: ER 22:09
DX: R07.81 Pleurodynia (principal); R51 Headache; F17.200 Nicotine dependence, unspecified, uncomplicated; F12.90 Cannabis use, unspecified, uncomplicated; F15.90 Other stimulant use, unspecified, uncomplicated; Z98.890 Other specified postprocedural states
CPT/HCPCS: 99283

== ENCOUNTER 2019-07-28 08:42 | Emergency (ER) | payer MEDICAID ==
[~2019-07-28] VITALS: Ht 154.9 cm; Wt 63.6 kg
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
[2019-07-28] MEDS ORDERED: DIPH,PERTUSS(ACELL),TET VAC/PF 0.5 ML SYRINGE. VAX IM ONE (09:15)
--- NOTE | 2019-07-28 09:42 | RAD ---
Two-view left forearm AP lateral views HISTORY: Fall, pain, laceration There is soft tissue laceration seen laterally. The visualized osseous structures appear normal. There is no radiopaque foreign body. IMPRESSION: No acute bony abnormality. Electronically signed by: Ronnell Snell III, MD (07/28/2019 9:39 AM) [id number]
[2019-07-28] MEDS ORDERED: LIDOCAINE 1%/EPI 1:100,000 20 ML VIAL. INJ ONE (09:45)
[2019-07-28 10:31] LABS: BILIRUBIN,URINE NEGATIVE (NEG); CLARITY,URINE CLEAR; COLOR,URINE YELLOW; NITRITE,URINE NEGATIVE (NEG); PROTEIN,URINE NEGATIVE (NEG-TRACE); UROBILINOGEN,URINE 0.2 mg/dL (0.2 mg/dL)
[2019-07-28 10:40] LABS: RBC,URINE 0 /HPF (0-2); SQUAMOUS EPITHELIAL CELL,UR MOD /LPF
[2019-07-28 10:41] LABS: BACTERIA,URINE FEW /HPF (0-FEW)
[2019-07-28] MEDS ORDERED: NEOMY/BACITR/POLYMYXIN OINT PACKET. TP ONE (10:45)
--- NOTE | 2019-07-28 11:00 | RAD ---
CHEST AP ONLY History: Cough Comparison: May 13, 2019 Findings: No consolidation or pleural effusion. Normal heart size. No pneumothorax. Impression: 1. No acute cardiopulmonary process. Electronically signed by: Jack Vazquez DO (07/28/2019 10:57 AM) [id number]
[2019-07-28] MEDS ORDERED: METR500T PO (11:06)
[2019-07-28] MEDS ORDERED: DOXY100T PO (11:06)
[2019-07-28 11:20] VITALS: BP 136/81
[2019-07-29 16:09] LABS: GC PROBE Negative (Negative)
== END 2019-07-28 11:41 | disposition home or self-care (01) ==
LOC: ER 08:42
DX: S51.812A Laceration without foreign body of left forearm, initial encounter (principal); N76.0 Acute vaginitis; B96.89 Other specified bacterial agents as the cause of diseases classified elsewhere; R05 Cough; F41.9 Anxiety disorder, unspecified; F32.9 Major depressive disorder, single episode, unspecified; F12.90 Cannabis use, unspecified, uncomplicated; F15.90 Other stimulant use, unspecified, uncomplicated; F17.210 Nicotine dependence, cigarettes, uncomplicated; Z98.890 Other specified postprocedural states; V19.88XA Pedal cyclist (driver) (passenger) injured in other specified transport accidents, initial encounter; Y93.89 Activity, other specified; Y92.413 State road as the place of occurrence of the external cause; Y99.8 Other external cause status
CPT/HCPCS: 12002; 71045; 73090; 81001; 81025; 87086; 87491; 87591; 90471; 90715; 99284; J3490; Q0111

== ENCOUNTER → 2019-08-26 23:08 | Emergency (ER) | payer MEDICAID ==
[2019-07-28 11:20] VITALS: BP 136/81
[~2019-08-26 23:08] MED LIST changes: +DOXY100T PO; +METR500T PO
== END | disposition left against medical advice (07) ==
LOC: ER 23:08
DX: F10.229 Alcohol dependence with intoxication, unspecified (principal); Z53.21 Procedure and treatment not carried out due to patient leaving prior to being seen by health care provider

== ENCOUNTER 2019-10-07 09:54 | Emergency (ER) | payer MEDICAID ==
[~2019-10-07] VITALS: Ht 160 cm; Wt 63.6 kg
[2019-10-07] MEDS ORDERED: MORPHINE SULFATE 10 MG/ML VIAL. IV ONE (10:15)
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
[2019-10-07 12:02] LABS: CALCIUM 8.5 mg/dL (8.5-10.1); CREATININE 1.2 mg/dL (0.6-1.0); GFR 64.3; POTASSIUM 3.6 mmol/L (3.5-5.1)
[2019-10-07] MEDS ORDERED: CONTRAST GIVEN. MC PRN (12:15)
[2019-10-07] MEDS ORDERED: IOHEXOL 300 MG/ML 100ML VIAL. IV ONE (12:15)
[2019-10-07 13:11] VITALS: BP 159/84
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
[2019-10-07] MEDS ORDERED: DIPH,PERTUSS(ACELL),TET VAC/PF 0.5 ML SYRINGE. VAX IM ONE (13:45)
[2019-10-07] MEDS ORDERED: METR500T PO (13:51)
== END 2019-10-07 14:07 | disposition home or self-care (01) ==
LOC: ER 09:54
DX: S01.03XA Puncture wound without foreign body of scalp, initial encounter (principal); S40.211A Abrasion of right shoulder, initial encounter; S60.512A Abrasion of left hand, initial encounter; S60.511A Abrasion of right hand, initial encounter; S90.812A Abrasion, left foot, initial encounter; R51 Headache; M54.2 Cervicalgia; R10.11 Right upper quadrant pain; R07.81 Pleurodynia; F17.210 Nicotine dependence, cigarettes, uncomplicated; Z88.1 Allergy status to other antibiotic agents; Y08.89XA Assault by other specified means, initial encounter; Y93.89 Activity, other specified; Y92.89 Other specified places as the place of occurrence of the external cause; Y99.8 Other external cause status
CPT/HCPCS: 36415; 70450; 70486; 71260; 72125; 73030; 73090; 73130; 73620; 74177; 80048; 81025; 90471; 90715; 96374; 99285; J2270; Q9967

== ENCOUNTER 2020-03-13 09:25 | Emergency (ER) | payer SELFPAY ==
[~2020-03-13] VITALS: Ht 154.9 cm; Wt 63.6 kg
[2020-03-13 09:52] VITALS: BP 128/75
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
== END 2020-03-13 13:30 | disposition left against medical advice (07) ==
LOC: ER 09:25
DX: N89.8 Other specified noninflammatory disorders of vagina (principal); R30.0 Dysuria; R05 Cough; K08.89 Other specified disorders of teeth and supporting structures; F41.9 Anxiety disorder, unspecified; F32.9 Major depressive disorder, single episode, unspecified; F17.200 Nicotine dependence, unspecified, uncomplicated; F12.90 Cannabis use, unspecified, uncomplicated; F19.90 Other psychoactive substance use, unspecified, uncomplicated; Z98.890 Other specified postprocedural states; Z88.1 Allergy status to other antibiotic agents
CPT/HCPCS: 81025; 99282; 99283

== ENCOUNTER 2020-09-02 13:24 | Emergency (ER) | payer SELFPAY ==
[~2020-09-02] VITALS: Ht 154.9 cm; Wt 77.3 kg
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
[2020-09-02 14:40] LABS: BASO # 0.1 x10^3/uL (0.0-0.2); BASO % 1 % (0-3); EOS # 0.5 x10^3/uL (0.0-0.7); EOS % 7 % (0-3); HEMATOCRIT 30.1 % (36.0-47.0); HEMOGLOBIN 9.3 g/dL (12.0-15.5); LYMPH # 2.3 x10^3/uL (1.0-4.8); LYMPH % 32 % (24-48); MEAN CORPUSCULAR HEMOGLOBIN 21 pg (25-35); MEAN CORPUSCULAR HGB CONC 31 g/dL (31-37); MEAN CORPUSCULAR VOLUME 68 fL (79-100); MONO # 0.7 x10^3/uL (0.0-1.1); MONO % 9 % (0-9); NEUT # 3.7 x10^3/uL (1.8-7.7); NEUT % 51 % (31-73); PLATELET COUNT 175 x10^3/uL (140-400); RED BLOOD COUNT 4.41 x10^6/uL (3.50-5.40); RED CELL DISTRIBUTION WIDTH 19.8 % (11.5-14.5); WHITE BLOOD COUNT 7.2 x10^3/uL (4.0-11.0)
[2020-09-02 14:42] LABS: BILIRUBIN,URINE NEGATIVE (NEG); CLARITY,URINE CLEAR; COLOR,URINE YELLOW; NITRITE,URINE NEGATIVE (NEG); PROTEIN,URINE NEGATIVE (NEG-TRACE); UROBILINOGEN,URINE 0.2 mg/dL (0.2 mg/dL)
[2020-09-02 14:48] LABS: CALCIUM 8.9 mg/dL (8.5-10.1); CREATININE 0.9 mg/dL (0.6-1.0); POTASSIUM 3.7 mmol/L (3.5-5.1)
[2020-09-02 14:54] LABS: ALBUMIN 3.3 g/dL (3.4-5.0); TOTAL BILIRUBIN 0.1 mg/dL (0.2-1.0); TOTAL PROTEIN 6.7 g/dL (6.4-8.2)
[2020-09-02 14:59] LABS: BACTERIA,URINE FEW /HPF (0-FEW); RBC,URINE 0 /HPF (0-2); WBC,URINE 0 /HPF (0-4)
[2020-09-02 15:37] LABS: ANISOCYTOSIS SLIGHT; HYPOCHROMIA MOD; MICROCYTOSIS MARKED; OVALOCYTES FEW; PLT ESTIMATE ADEQUATE (ADEQUATE)
--- NOTE | 2020-09-02 16:21 | EKG ---
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
[2020-09-02] MEDS ORDERED: BENZ100C PO (17:26)
[2020-09-02] MEDS ORDERED: KETOROLAC 15 MG/ML VIAL. IVP ONE (17:30)
[2020-09-02] MEDS ORDERED: AZIT250T PO (17:43)
--- NOTE | 2020-09-02 17:54 | RAD ---
Single view chest dated 09/02/2020. Comparison made to 07/28/2019. Clinical data indication: Cough. FINDINGS: Single upright portable exam performed. Heart and mediastinal contours are stable. Lungs are clear. N o consolidation or pleural effusion. No pneumothorax. IMPRESSION: No acute radiographic abnormality. Electronically signed by: Reggie Dobbins MD (09/02/2020 5:51 PM) [id number]
[2020-09-02 17:55] VITALS: BP 130/82
--- NOTE | 2020-09-03 19:45 | EKG ---
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
== END 2020-09-02 17:55 | disposition home or self-care (01) ==
LOC: ER 13:24
DX: D50.9 Iron deficiency anemia, unspecified (principal); Z20.822 Contact with and (suspected) exposure to COVID-19; R05 Cough; F17.200 Nicotine dependence, unspecified, uncomplicated
CPT/HCPCS: 36415; 71045; 80053; 81001; 81025; 82550; 83615; 84484; 85025; 85379; 93005; 96365; 96375; 96376; 99285; U0003